=== PATIENT | male | born 1940 | race Caucasian/White ===

== ENCOUNTER 2017-09-08 18:53 | Inpatient (IN) | payer MEDICARE ==
[~2017-09-08] VITALS: Ht 180.3 cm; Wt 94.4 kg
--- NOTE | ~2017-09-08 | CON ---
[place], [place] REPORT OF CONSULTATION NAME: SUSAN AKERS UNIT #: [id number] ROOM: 524 DOCTOR: EUFEMIA COLORADO MD BIRTHDATE: [birth year] DOS: 09/09/2017 CHIEF COMPLAINT: "Yah my knees are hot, but I think I will just go home and exercise them." HISTORY OF PRESENT ILLNESS: This is a 76-year-old white male who had presented to the emergency room at [facility] via EMS for altered mental status. Apparently, the patient left his home at 11:00 a.m. on the day of admission and was missing until late that evening when he was found and brought into the emergency room. His sister was the provider of some of this information and she confirms that the patient is normally confused, but is even more so confused now and has never gone missing like this. The patient underwent a brief organic workup while in the emergency room and was diagnosed with the UTI and metabolic encephalopathy. He was admitted to the 5th floor at [facility] for further medication monitoring and adjustment. The patient has had episodes of increased combativeness and resistance to care since his admission here and has required p.r.n. intervention. MENTAL STATUS: The patient is alert and oriented to self. He states he has been in the hospital for about 3 days, but he does know he is in the hospital. Mood does seem to be somewhat depressed with some anxious overtones and he is grossly delusional about some of the incidents in his life. He does process slowly and short term memory has gaps. DIAGNOSIS: Major depression, recurrent, severe, rule out Alzheimer dementia, rule out organic factors. PLAN: I will write for a serum ammonia level as well as a vitamin B12 and vitamin D level. I will start him on Cymbalta. I do think he would benefit from a stay at the [facility]. I have not brought this up to him. I do not know if he would willingly go or he may require emergency involuntary admission. EUFEMIA COLORADO MD CM:CONSTR:REPORT OF CONSULTATION 1058 09/09/17 1123 interface
[2017-09-08 18:54] VITALS: BP 122/83
[2017-09-08 19:15] LABS: BASO % 0.1 % (0.0-1.0); EOS % 0.1 % (1.0-4.0); HEMATOCRIT 47.3 % (42.0-52.0); HEMOGLOBIN 15.8 g/dl (14.0-18.0); LYMPH # 0.9 10*3/uL (1.3-4.4); LYMPH % 6.3 % (27.0-41.0); MEAN CELL VOLUME 92.9 fl (80.0-94.0); MEAN CORPUSCULAR HGB CONC 33.4 g/dl (33.0-37.0); MONO % 7.2 % (3.0-9.0); NEUT % 85.9 % (47.0-73.0); PLATELET COUNT AUTOMATED 304 10*3/uL (130-400); RED BLOOD COUNT 5.09 10*6/uL (4.50-5.90); RED CELL DISTRI WIDTH 13.6 % (0-14.5)
[2017-09-08 19:24] LABS: BILIRUBIN NEGATIVE (NEGATIVE); BLOOD 1+ (NEGATIVE); CLARITY SL CLOUDY (CLEAR); COLOR YELLOW (YELLOW); GLUCOSE NEGATIVE (NEGATIVE); KETONE 2+ (NEGATIVE); LEUKO ESTERASE NEGATIVE (NEGATIVE); NITRITE POSITIVE (NEGATIVE); SPECIFIC GRAVITY 1.025 (1.005-1.030); UROBILINOGEN 0.2 E.U./dl (0.2-1.0)
[2017-09-08 19:25] LABS: ACT PARTIAL THROMBO TIME 21.9 SECONDS (20.8-31.5)
[2017-09-08 19:29] LABS: BACTERIA 4+; EPITHELIAL CELLS 0-2; RBC 0-2 rbc/hpf (0-2); WBC 16-20 wbc/hpf (0-5)
[2017-09-08 19:32] LABS: ALBUMIN 3.8 gm/dl (3.1-4.5); ALKALINE PHOSPHATASE 90 U/L (45-117); BUN 20 mg/dl (7-24); CHLORIDE 106 mmol/L (98-107); CPK 725 U/L (39-308); CREATININE 1.22 mg/dL (0.70-1.30); POTASSIUM 3.8 mmol/L (3.5-5.1); SGOT/AST 36 IU/L (3-35); SGPT/ALT 24 U/L (12-78); SODIUM 140 mmol/L (136-145); TOTAL PROTEIN 7.8 gm/dL (6.4-8.2)
[2017-09-08 19:35] LABS: ACETAMINOPHEN (TYLENOL) < 2.0 ug/ml (10-30); ETHYL ALCOHOL < 3.0 mg/dl (<3); TROPONIN I < 0.015 ng/ml (<0.045)
[2017-09-08 19:36] LABS: URINE AMPHETAMINES < 1000 (1000ng/ml); URINE BARBITURATES < 200 (200ng/ml); URINE BENZODIAZEPINES < 200 (200ng/ml); URINE CANNABINOIDS (THC) < 50 (50ng/ml); URINE COCAINE < 300 (300ng/ml); URINE METHADONE < 300 (300ng/ml); URINE OPIATES < 300 (300ng/ml); URINE PHENCYCLIDINE < 25 (25ng/ml)
[2017-09-08 19:36] LABS: CKMB 12.4 ng/ml (0.5-3.6)
[2017-09-08 20:03] VITALS: BP 121/86
[2017-09-08 21:03] VITALS: BP 135/93
[2017-09-08 21:15] VITALS: BP 155/82
[2017-09-08 21:35] VITALS: BP 155/82
[2017-09-08 22:16] LABS: TROPONIN I 0.016 ng/ml (<0.045)
[2017-09-08 22:18] LABS: CKMB 13.4 ng/ml (0.5-3.6)
[2017-09-09] VITALS: BP 125/76
[2017-09-09 01:26] LABS: TROPONIN I 0.026 ng/ml (<0.045)
[2017-09-09 01:29] LABS: CKMB 15.4 ng/ml (0.5-3.6)
[2017-09-09 04:19] LABS: BASO % 0.3 % (0.0-1.0); EOS % 0.2 % (1.0-4.0); HEMOGLOBIN 13.4 g/dl (14.0-18.0); LYMPH # 1.3 10*3/uL (1.3-4.4); LYMPH % 10.7 % (27.0-41.0); MEAN CELL VOLUME 94.8 fl (80.0-94.0); MEAN CORPUSCULAR HGB 31.4 pg (27.0-31.0); MEAN CORPUSCULAR HGB CONC 33.1 g/dl (33.0-37.0); MEAN PLATELET VOLUME 9.1 fl (9.6-12.3); MONO # 1.1 10*3/uL (0.1-1.0); MONO % 9.1 % (3.0-9.0); NEUT # 9.2 10*3/uL (2.3-7.9); NEUT % 79.3 % (47.0-73.0); PLATELET COUNT AUTOMATED 252 10*3/uL (130-400); RED BLOOD COUNT 4.27 10*6/uL (4.50-5.90); WHITE BLOOD COUNT 11.7 10*3/uL (4.8-10.8)
[2017-09-09 04:20] LABS: HEMATOCRIT 40.5 % (42.0-52.0)
[2017-09-09 04:35] LABS: TROPONIN I 0.024 ng/ml (<0.045)
[2017-09-09 04:51] LABS: ALKALINE PHOSPHATASE 69 U/L (45-117); BUN 16 mg/dl (7-24); CHLORIDE 111 mmol/L (98-107); CHOLESTEROL 187 mg/dL (<200); CREATININE 0.85 mg/dL (0.70-1.30); HDL CHOLESTEROL 43 mg/dl (40-60); LDL CHOLESTEROL 127 mg/dL (9-159); PHOSPHOROUS 1.9 mg/dL (2.5-4.9); POTASSIUM 3.6 mmol/L (3.5-5.1); SGOT/AST 47 IU/L (3-35); SGPT/ALT 21 U/L (12-78); SODIUM 144 mmol/L (136-145); TOTAL PROTEIN 6.3 gm/dL (6.4-8.2); TRIGLYCERIDES 85 mg/dl (<150); VLDL CHOLESTEROL 17 mg/dL (6-40)
[2017-09-09 08:00] VITALS: BP 133/86
[2017-09-09 12:00] VITALS: BP 142/85
[2017-09-09 12:30] LABS: VITAMIN D, 25-HYDROXY 22.3 ng/mL (30-100)
[2017-09-09 16:00] VITALS: BP 156/84
[2017-09-10] VITALS: BP 143/96
[2017-09-10 08:23] VITALS: BP 117/77
[2017-09-10 12:16] VITALS: BP 133/83
[2017-09-10 16:00] VITALS: BP 136/86
[2017-09-10 20:00] VITALS: BP 156/95
[2017-09-11 07:03] LABS: BASO % 0.5 % (0.0-1.0); EOS # 0.2 10*3/uL (0.0-0.4); HEMATOCRIT 37.3 % (42.0-52.0); HEMOGLOBIN 12.4 g/dl (14.0-18.0); LYMPH # 2.4 10*3/uL (1.3-4.4); LYMPH % 31.9 % (27.0-41.0); MEAN CELL VOLUME 95.6 fl (80.0-94.0); MEAN CORPUSCULAR HGB 31.8 pg (27.0-31.0); MEAN CORPUSCULAR HGB CONC 33.2 g/dl (33.0-37.0); MEAN PLATELET VOLUME 9.4 fl (9.6-12.3); MONO # 0.8 10*3/uL (0.1-1.0); MONO % 10.6 % (3.0-9.0); NEUT # 4.2 10*3/uL (2.3-7.9); NEUT % 54.3 % (47.0-73.0); PLATELET COUNT AUTOMATED 237 10*3/uL (130-400); RED CELL DISTRI WIDTH 13.7 % (0-14.5); WHITE BLOOD COUNT 7.6 10*3/uL (4.8-10.8)
[2017-09-11 07:24] LABS: ALBUMIN 2.9 gm/dl (3.1-4.5); ALKALINE PHOSPHATASE 65 U/L (45-117); BUN 4 mg/dl (7-24); CHLORIDE 106 mmol/L (98-107); CREATININE 0.57 mg/dL (0.70-1.30); POTASSIUM 2.9 mmol/L (3.5-5.1); SGOT/AST 54 IU/L (3-35); SGPT/ALT 32 U/L (12-78); SODIUM 142 mmol/L (136-145); TOTAL PROTEIN 6.1 gm/dL (6.4-8.2)
[2017-09-11 08:11] LABS: CPK 791 U/L (39-308)
[2017-09-11 09:45] VITALS: BP 135/89
[2017-09-11 12:00] VITALS: BP 117/80
[2017-09-11 16:00] VITALS: BP 138/86
[2017-09-11 20:00] VITALS: BP 148/89
[2017-09-12 00:21] VITALS: BP 142/80
[2017-09-12 10:00] VITALS: BP 133/90
[2017-09-12 10:35] LABS: BUN 6 mg/dl (7-24); CHLORIDE 106 mmol/L (98-107); CREATININE 0.61 mg/dL (0.70-1.30); SODIUM 140 mmol/L (136-145)
[2017-09-12 12:00] VITALS: BP 127/75
[2017-09-12] MEDS ORDERED: RISPERIDONE0.5 MG PO (12:06)
[2017-09-12] MEDS ORDERED: VITAMIN D-32000 UNIT PO (12:06)
[2017-09-12] MEDS ORDERED: DULOXETINE HCL30 MG PO (12:06)
== END 2017-09-12 15:47 | disposition home health service (06) | DRG 871 ==
LOC: ED 18:53 → EDHOLD 20:26 → 5E 20:26
PROVIDERS: Internal Medicine; Nurse Practitioner Family; Psychiatry & Neurology Psychiatry; Student in an Organized Health Care Education/Training Program
DX: A41.9 Sepsis, unspecified organism (principal); G93.41 Metabolic encephalopathy; E44.0 Moderate protein-calorie malnutrition; D53.9 Nutritional anemia, unspecified; N30.01 Acute cystitis with hematuria; F33.9 Major depressive disorder, recurrent, unspecified; R65.20 Severe sepsis without septic shock; E86.0 Dehydration; F03.90 Unspecified dementia, unspecified severity, without behavioral disturbance, psychotic disturbance, mood disturbance, and anxiety; R73.9 Hyperglycemia, unspecified; R74.0 Nonspecific elevation of levels of transaminase and lactic acid dehydrogenase [LDH]; R80.9 Proteinuria, unspecified; R82.4 Acetonuria; M54.30 Sciatica, unspecified side; E66.3 Overweight; E83.39 Other disorders of phosphorus metabolism; E83.41 Hypermagnesemia; Z79.899 Other long term (current) drug therapy

== ENCOUNTER 2017-09-12 15:56 | Inpatient (IN) | payer MEDICARE ==
[~2017-09-12] VITALS: Ht 180.3 cm; Wt 94.3 kg
--- NOTE | ~2017-09-12 | DS ---
[place], [place] DISCHARGE SUMMARY [id number] UNIT #: [id number] ROOM: 314 DOCTOR: EUFEMIA COLORADO MD BIRTHDATE: [birth year] DOS: 09/22/2017 CHIEF COMPLAINT: "Good to meet you. When do I get to go home." HISTORY OF PRESENT ILLNESS: This is a 76-year-old white male who was initially admitted to the medical floor at [facility] due to severe sepsis from UTI and also with metabolic encephalopathy. During his initial medical stay, the patient was described as being normally confused, but the confusion had worsened in the last month prior to this admission. 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 The patient required multiple p.r.n. medications in order to prevent harm to self and others. These behaviors continued to escalate to the point where he was combative on several occasions with staff, throwing punches and requiring restraint. He is admitted now to the [facility] to rule out further organic factors to attempt to stabilize on medication and to determine the least restrictive environment where he can be discharged post-stabilization. PAST MEDICAL HISTORY: Remarkable for sciatica, dementia and being overweight. SOCIAL HISTORY: The patient does not drink alcohol or use illicit drugs. It is unknown if he has been a smoker in the past. STRENGTHS: He is ambulatory and has a supportive family. SUMMARY OF HOSPITAL COURSE: The patient was admitted to the unit where he was maintained on the Cymbalta that I started while he was on the medical floor. He also was started on Exelon patch 4.6 mg a day and Namenda 5 mg a day to help improve or maintain ADLs, behavior and cognition. Both of these drugs were gradually increased to their maximum dose with the Exelon patch being brought up to 13.3 mg a day and Namenda being brought up to 10 mg twice daily. Behavior continued to be problematic, especially in the late afternoon, early evening hours, so Risperdal 0.5 mg was added at 6:00 p.[address] with excellent results. Dr. Anthony Rosales, psychologist, was consulted due to competency and did deem the patient incompetent and guardianship was obtained. The patient had lived in the [facility] [place] prior to coming to [facility] and family requested that placement near them. Eventually, the patient was placed at [facility] in [place], [place]. MENTAL STATUS AT DISCHARGE: The patient is alert and oriented to person, possibly place, not to time. Mood is euthymic and he smiles and engages readily. Conversation is short and simple and he lacks much spontaneity. There, however, was no hypomania, carolina or psychotic symptomatology. He does process conversation slowly and his responses tended to be sparse. Short-term memory continues to be problematic. FINAL DIAGNOSES: Major depression, recurrent with psychotic features and Alzheimer's dementia. [place], [place] DISCHARGE SUMMARY NAME: SUSAN AKERS UNIT #: [id number] ROOM: [facility] DOCTOR: EUFEMIA COLORADO MD BIRTHDATE: [birth year] PLAN: The patient is to be admitted to [facility] in [place], [place]. He is medically and psychiatrically stable. His biopsychosocial needs are adequately being met by the facility and his family is supportive as well. His scripts have been printed and will be sent with him. EUFEMIA COLORADO MD CM:DISCHARG [id number] EUFEMIA COLORADO MD 09/22/17 1106 interface
--- NOTE | ~2017-09-12 | PR ---
[place], [place] PROGRESS NOTE NAME: [id number] UNIT #: [id number] ROOM: 314 DOCTOR: YANA CARRANZA DO BIRTHDATE: [birth year] DOS: 09/21/2017 CHIEF COMPLAINT "When am I going home?" SUMMARY OF VISIT: The patient is a 76-year-old male who was admitted to the [facility] from the medical floor after a sepsis workup and for metabolic encephalopathy, currently on day #9 and currently stable. Today, the patient was interviewed in the dining room area. He was eating breakfast and did not appear to be in any distress. He did ask about discharge planning. We confirmed that he will be going to [facility] tomorrow. The patient voiced understanding. Per nursing staff, the patient slept over 8 hours last night and was compliant with medications. MENTAL STATUS EXAMINATION: The patient is alert and oriented to self, place and occasionally to time. Mood is euthymic. Affect is appropriate and normal. His short term memory does appear to have some gaps. The patient was willing and readily engaged in conversation. PLAN: 1. Continue current psychotropic regimen as the patient is currently tolerating therapy well. 2. Disposition: The patient to be discharged tomorrow, 09/22/2017 to [facility] in [place], [place]. We will continue to engage the patient in individual and wilkinson milieu activity, returning to the least restrictive environment when psychiatrically stable. Yana Carranza DO EUFEMIA COLORADO MD CM:HERMINIA [id number] YANA CARRANZA DO 09/21/17 1105 interface
--- NOTE | ~2017-09-12 | PR ---
[place], [place] PROGRESS NOTE NAME: SUSAN AKERS UNIT #: [id number] ROOM: 314 DOCTOR: EUFEMIA COLORADO MD BIRTHDATE: [birth year] DOS: 09/17/2017 CHIEF COMPLAINT: "Morning bud." SUMMARY OF THE VISIT: The patient was interviewed as he was walking with his walker down the fall. He stopped and smiled and waved at me, wished me a good morning. He does seem to be much more appropriate and pleasant. There has been no agitation or aggression noted. He is tolerating the current medication regimen well. MENTAL STATUS: He is alert and oriented to person, place, not necessarily time. Mood does seem to be trending significantly towards euthymia. Affect is more appropriate. There is no symptom suggestive of carolina or hypomania. There are no gross psychotic symptoms. Short term memory has gaps, otherwise he is intact. PLAN: I will increase Namenda to 5 mg b.i.d. to augment the effectiveness of the Exelon patch already maxed out at 13.3 mg a day. We will engage in individual and wilkinson milieu activity with the plan to return to the least restrictive environment when psychiatrically stable. EUFEMIA COLORADO MD CM:PNTRANS [id number] EUFEMIA COLORADO MD 09/17/17 1128 interface
--- NOTE | ~2017-09-12 | PR ---
[place], [place] PROGRESS NOTE NAME: [id number] UNIT #: [id number] ROOM: 314 DOCTOR: YANA SELF DO BIRTHDATE: [birth year] DOS: 09/20/2017 CHIEF COMPLAINT: "My knees hurt." SUMMARY OF VISIT: The patient is a 76-year-old male who was admitted to the [facility] from the medical floor after sepsis workup and metabolic encephalopathy, currently on hospital day #8, currently stable. Today, the patient was interviewed in his room and he appeared to be resting comfortably in bed. The patient at this time was complaining of diffuse generalized knee pain bilaterally. He has been participating in physical therapy and walker is present at bedside. The patient does not voice any other concerns at this time. He did inquire as to why he was still in the U and I confirmed that we are awaiting placement at this time. He voiced understanding. MENTAL STATUS EXAMINATION: The patient is alert and oriented to self and place, but not time. Mood is euthymic. He was readily engaged in conversation. Affect is normal. Short-term memory did appear to have gaps. PLAN: 1. Increase Namenda 10 mg b.i.d. 2. Disposition, form was faxed for referral to [facility] in [place], [place], currently awaiting placement. 3. Diffuse knee pain. Internal medicine hospitalist team was present at bedside at the time of evaluation. They will be managing chronic pain management for diffuse knee pain complaint. Yana Self, DO EUFEMIA COLORADO MD CM:HERMINIA [id number] YANA SELF DO 09/20/17 1301 interface
--- NOTE | ~2017-09-12 | WRIGHTHP ---
[place], [place] PATIENT HISTORY AND PHYSICAL EXAM NAME: SUSAN AKERS UNIT #: [id number] ROOM: 314 DOCTOR: EUFEMIA COLORADO MD BIRTHDATE: [birth year] DOS: 09/13/2017 CHIEF COMPLAINT: "Good to meet you, when do I get to go home." HISTORY OF PRESENT ILLNESS: This is a 76-year-old white male who was initially admitted to the medical floor at [facility] due to severe sepsis due to a UTI with metabolic encephalopathy. During that initial medical admission the patient, who was described as normally confused by his sister, states that the confusion has been worsening over the last month prior to this admission. 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 The patient required p.r.n. interventions to prevent harm to self and others. He continued to escalate and was combative on multiple occasions. He is admitted to the [facility] now to rule out any further organic factors to attempt to stabilize him on medication and to determine the least restrictive environment where he can be discharged post-stabilization. PAST MEDICAL HISTORY: Remarkable for sciatica, being overweight and the dementia. SOCIAL HISTORY: The patient does not drink alcohol or use illicit drugs. STRENGTHS: The patient is ambulatory and has a supportive family. MENTAL STATUS: Upon admission, the patient is alert and oriented to self, place, but not time. He could not tell me how long he had been here in the hospital. He could not remember what he had for breakfast. He tended to confabulate and change the subject on me frequently. There is no symptom suggestive of carolina or hypomania. There are no gross psychotic symptoms noted during this evaluation. Short term memory remains extremely poor. DIAGNOSIS: Major depression, recurrent and Alzheimer dementia. PLAN: I have maintained him on the Cymbalta 30 mg at bedtime. I will add Exelon patch 4.6 mg a day and consider augmenting this with Namenda eventually. We will explore possible discharge placements. We will consult Dr. Rosales to evaluate regarding competency and discharge then when stable. [place], [place] PATIENT HISTORY AND PHYSICAL EXAM NAME: SUSAN AKERS UNIT #: [id number] ROOM: [facility] DOCTOR: EUFEMIA COLORADO MD BIRTHDATE: [birth year] EUFEMIA COLORADO MD CM:HISPHYS:PATIENT HISTORY AND PHYSICAL EXAMINATION 1113 1127 EUFEMIA COLORADO MD 09/13/17 1126 interface
--- NOTE | ~2017-09-12 | PR ---
[place], [place] PROGRESS NOTE NAME: SUSAN AKERS UNIT #: [id number] ROOM: 314 DOCTOR: EUFEMIA COLORADO MD BIRTHDATE: [birth year] DOS: 09/14/2017 CHIEF COMPLAINT: "Morning nilo, when do I get to go home?" SUMMARY OF THE VISIT: The patient was interviewed as he rested in bed. He awoke and engaged readily in conversation. He was somewhat fixated on going home. We discussed staying a few more days, which he nodded in approval. At this point in time, we are going to broach the subject about him returning into some type of 30-day rehab if not assisted living or a long-term care. MENTAL STATUS: He is alert and oriented with significant time gaps. Mood does seem to be trending towards euthymia. Affect is more appropriate. There is no carolina, hypomania or psychosis. Short term memory is poor, otherwise he is intact. PLAN: I will go ahead and increase Exelon patch from 4.6 to 9.5 mg a day, continue to engage in individual and wilkinson milieu activity, returning to the least restrictive environment when psychiatrically stable. EUFEMIA COLORADO MD CM:PNTRANS [id number] EUFEMIA COLORADO MD 09/14/17 1155 interface
--- NOTE | ~2017-09-12 | PR ---
[place], [place] PROGRESS NOTE NAME: SUSAN AKERS UNIT #: [id number] ROOM: 314 DOCTOR: EUFEMIA COLORADO MD BIRTHDATE: [birth year] DOS: 09/15/2017 CHIEF COMPLAINT: "Hey, doc." SUMMARY OF THE VISIT: The patient was interviewed as he was walking with his walker out of the dining area. He smiled as he approached me and said hello. Other patients did give him warm positive comments about how well he was looking and how much he had gotten himself ready. MENTAL STATUS: He is alert and oriented with time gaps. He does seem to be much more conversant and engaging more in conversation of late. Speech rate and pattern does seem to be still slowed at times and he has some processing issues. He remains confused, especially to time. There is no carolina or hypomania nor is there any psychotic symptomatology. PLAN: I will go ahead and max out the dose of Exelon patch to 13.3 mg a day. Continue to support and redirect. Engage in individual and wilkinson milieu activity, returning to the least restrictive environment when psychiatrically stable. EUFEMIA COLORADO MD CM:PNTRANS 1129 [id number] EUFEMIA COLORADO MD 09/15/17 1242 interface
--- NOTE | ~2017-09-12 | PR ---
[place], [place] PROGRESS NOTE NAME: SUSAN AKERS UNIT #: [id number] ROOM: 314 DOCTOR: EUFEMIA COLORADO MD BIRTHDATE: [birth year] DOS: 09/18/2017 CHIEF COMPLAINT: "Hey bud, how are you." SUMMARY OF THE VISIT: The patient was interviewed as he was resting in bed. I had earlier seen him in the dining area, eating breakfast and then ambulating with his walker back to his room. He was not sleeping, but just lying there. He engaged readily in brief conversation, continuing to be very superficial. He could not tell me how long he has been here, but he remains fixated on leaving here. MENTAL STATUS: He is alert and oriented to person, possibly place, not time. Mood does seem to be more euthymic. He is much more bright and pleasant upon approach. There does not seem to be the presence of hypomania or carolina. There does not seem to be the presence of any auditory or visual hallucinations. No delusions, no paranoia. Short term memory continues to be exceptionally poor. PLAN: I will continue to titrate the dose of the Namenda upwards bringing it from 5 mg b.i.d. to 10 mg in the morning and 5 mg at bedtime. Continue to engage in individual and wilkinson milieu activity, returning to the least restrictive environment when psychiatrically stable. EUFEMIA COLORADO MD CM:PNTRANS 0910 1009 EUFEMIA COLORADO MD 09/18/17 1008 interface
--- NOTE | ~2017-09-12 | PR ---
[place], [place] PROGRESS NOTE NAME: SUSAN AKERS UNIT #: [id number] ROOM: 314 DOCTOR: EUFEMIA COLORADO MD BIRTHDATE: [birth year] DOS: 09/16/2017 CHIEF COMPLAINT: "Yeah, I hope to get out of here soon, thanks." SUMMARY OF THE VISIT: The patient was interviewed as he was walking down the fall. He stopped and engaged in conversation with me. He reports that he is feeling well and is hopeful that he will be able to get out of here soon. He is oriented to person and place, but not necessarily time and he continues to be somewhat episodically confused. He is tolerating the current medication regimen well. MENTAL STATUS: He is alert and oriented to person, place and as mentioned previously not necessarily time. Mood though, however, it does seem to be trending towards euthymia and affect is much more appropriate. There is no carolina, hypomania or psychotic symptomatology noted. Memory for short term events is disturbed. PLAN: I will go ahead and augment his Exelon patch with Namenda 5 mg a day, targeting a total dose of 20 mg a day to help improve or maintain ADLs, behavior and cognition. We will engage in individual and wilkinson milieu activity, returning to the least restrictive environment when psychiatrically stable. EUFEMIA COLORADO MD CM:PNTRANS 1031 1134 EUFEMIA COLORADO MD 09/16/17 1134 interface
[2017-09-12 15:50] VITALS: BP 150/92
[~2017-09-12 15:56] MED LIST: DULOXETINE HCL30 MG PO; RISPERIDONE0.5 MG PO; VITAMIN D-32000 UNIT PO
[2017-09-12 16:53] VITALS: BP 150/92
[2017-09-12 20:00] VITALS: BP 150/92
[2017-09-13 06:23] LABS: BASO % 0.3 % (0.0-1.0); EOS # 0.2 10*3/uL (0.0-0.4); EOS % 3.2 % (1.0-4.0); HEMATOCRIT 36.7 % (42.0-52.0); HEMOGLOBIN 12.5 g/dl (14.0-18.0); LYMPH # 1.5 10*3/uL (1.3-4.4); LYMPH % 22.8 % (27.0-41.0); MEAN CELL VOLUME 93.6 fl (80.0-94.0); MEAN CORPUSCULAR HGB 31.9 pg (27.0-31.0); MEAN CORPUSCULAR HGB CONC 34.1 g/dl (33.0-37.0); MONO # 0.6 10*3/uL (0.1-1.0); MONO % 8.7 % (3.0-9.0); NEUT # 4.3 10*3/uL (2.3-7.9); NEUT % 64.7 % (47.0-73.0); PLATELET COUNT AUTOMATED 253 10*3/uL (130-400); RED BLOOD COUNT 3.92 10*6/uL (4.50-5.90); RED CELL DISTRI WIDTH 13.7 % (0-14.5); WHITE BLOOD COUNT 6.6 10*3/uL (4.8-10.8)
[2017-09-13 06:44] LABS: ALBUMIN 2.7 gm/dl (3.1-4.5); CHLORIDE 107 mmol/L (98-107); POTASSIUM 3.6 mmol/L (3.5-5.1); SODIUM 141 mmol/L (136-145)
[2017-09-13 06:58] LABS: ALKALINE PHOSPHATASE 64 U/L (45-117); BUN 6 mg/dl (7-24); CHOLESTEROL 168 mg/dL (<200); CREATININE 0.56 mg/dL (0.70-1.30); HDL CHOLESTEROL 45 mg/dl (40-60); LDL CHOLESTEROL 104 mg/dL (9-159); SGOT/AST 24 IU/L (3-35); SGPT/ALT 31 U/L (12-78); TOTAL PROTEIN 6.3 gm/dL (6.4-8.2); TRIGLYCERIDES 94 mg/dl (<150); VLDL CHOLESTEROL 19 mg/dL (6-40)
[2017-09-13 07:36] LABS: VITAMIN D, 25-HYDROXY 22.8 ng/mL (30-100)
[2017-09-13 07:57] VITALS: BP 131/65
[2017-09-13 21:30] VITALS: BP 168/88
[2017-09-14 07:54] VITALS: BP 122/83
[2017-09-14 20:00] VITALS: BP 148/88
[2017-09-15 07:38] VITALS: BP 160/84
[2017-09-15 19:38] VITALS: BP 142/87
[2017-09-16 08:18] VITALS: BP 154/87
[2017-09-16 20:00] VITALS: BP 148/88
[2017-09-17 07:44] VITALS: BP 142/84
[2017-09-17 19:52] VITALS: BP 143/90
[2017-09-18 07:55] VITALS: BP 131/93
[2017-09-18 20:15] VITALS: BP 142/83
[2017-09-19 07:54] VITALS: BP 134/74
[2017-09-19 20:00] VITALS: BP 129/86
[2017-09-20 07:33] VITALS: BP 122/80
[2017-09-20 19:55] VITALS: BP 147/82
[2017-09-21 07:50] VITALS: BP 125/81
[2017-09-21 19:10] VITALS: BP 148/64
[2017-09-22 08:35] VITALS: BP 139/82
[2017-09-22] MEDS ORDERED: RISPERIDONE0.5 MG PO (09:42)
[2017-09-22] MEDS ORDERED: DULOXETINE HCL30 MG PO (09:42)
[2017-09-22] MEDS ORDERED: MEMANTINE HCL10 MG PO (09:42)
[2017-09-22] MEDS ORDERED: EXELON13.3 MG/21 T (09:42)
== END 2017-09-22 14:28 | disposition other institution (70) | DRG 885 ==
LOC: 3N 15:56
PROVIDERS: Psychiatry & Neurology Psychiatry
DX: F33.3 Major depressive disorder, recurrent, severe with psychotic symptoms (principal); E44.0 Moderate protein-calorie malnutrition; G30.9 Alzheimer's disease, unspecified; D53.9 Nutritional anemia, unspecified; E83.41 Hypermagnesemia; F02.81 Dementia in other diseases classified elsewhere, unspecified severity, with behavioral disturbance; I45.81 Long QT syndrome; M54.30 Sciatica, unspecified side; R74.0 Nonspecific elevation of levels of transaminase and lactic acid dehydrogenase [LDH]; R73.9 Hyperglycemia, unspecified; E66.3 Overweight; Z68.29 Body mass index [BMI] 29.0-29.9, adult